=== PATIENT | female | born 1985 | race Two or more races ===

== ENCOUNTER 2017-12-31 08:10 | Outpatient (CLI) | payer OTHER | END 2017-12-31 08:21 | disposition home or self-care (01) | LOC: SONOGRAMA 08:10 | DX: R10.84 Generalized abdominal pain (principal) ==

== ENCOUNTER 2018-02-21 12:43 | Inpatient (IN) | payer OTHER ==
[~2018-02-21] VITALS: Ht 167.6 cm; Wt 4.1 kg
[2018-03-03] MEDS ORDERED: PRENATABS RX T1 EACH PO (07:03)
== END 2018-03-06 12:41 | DRG 788 ==
LOC: LDR 03-03 06:22 → OB/GYN 03-03 06:22
PROVIDERS: Obstetrics & Gynecology Maternal & Fetal Medicine
PROC: 4A1HXCZ Monitoring of Products of Conception, Cardiac Rate, External Approach (ICD-10-PCS; 2018-03-03)
PROC: 10D00Z1 Extraction of Products of Conception, Low, Open Approach (ICD-10-PCS; principal; 2018-03-03 08:00)
DX: O34.211 Maternal care for low transverse scar from previous cesarean delivery (principal); O75.82 Onset (spontaneous) of labor after 37 completed weeks of gestation but before 39 completed weeks gestation, with delivery by (planned) cesarean section; Z3A.39 39 weeks gestation of pregnancy; Z37.0 Single live birth; Z22.330 Carrier of Group B streptococcus